=== PATIENT | male | born 1990 | race Caucasian/White ===

== ENCOUNTER 2021-09-28 08:57 | Emergency (ER) | payer SELFPAY ==
[~2021-09-28] VITALS: Ht 170.2 cm; Wt 50.0 kg
--- NOTE | 2021-09-28 09:23 | PHYS DOC ---
General Adult EDM: Chief Complaint: DENTAL PROBLEM HPI: HPI: Patient is a 30 year old male who presents after being seen at the dentist today for an abscess on the left upper side. Patient states that when the dentist went to numb the area he immediately had shooting pain and blurry vision in his left eye. Patient still currently reporting pain and some blurry vision in the left side. Denies all other symptoms. Patient states that vision has improved since he is arrived. Patient denies all medical history. Review of Systems: Review of Systems: ROS At least 10 ROS systems have been reviewed and are negative except as documented in the HPI. Heart Score: C/O Chest Pain: No Risk Factors: Risk Factors: DM, Current or recent (<one month) smoker, HTN, HLP, family history of CAD, obesity. Risk Scores: Score 0 - 3: 2.5% MACE over next 6 weeks - Discharge Home Score 4 - 6: 20.3% MACE over next 6 weeks - Admit for Clinical Observation Score 7 - 10: 72.7% MACE over next 6 weeks - Early Invasive Strategies Allergies: Allergies: Allergies Coded Allergies Type Severity Reaction Last Updated Verified No Known Drug Allergies 09/28/21 No Physical Exam: PE: Constitutional: Well developed, well nourished, no acute distress, non-toxic appearance. [] HENT: Normocephalic, atraumatic, bilateral external ears normal, oropharynx moist, no oral exudates, nose normal. [] Eyes: PERRLA, EOMI, conjunctiva normal, no discharge. [] Neck: Normal range of motion, no tenderness, supple, no stridor. [] Cardiovascular:Heart rate regular rhythm, no murmur [] Lungs & Thorax: Bilateral breath sounds clear to auscultation [] Abdomen: Bowel sounds normal, soft, no tenderness, no masses, no pulsatile masses. [] Skin: Warm, dry, no erythema, no rash. [] Back: No tenderness, no CVA tenderness. [] Extremities: No tenderness, no cyanosis, no clubbing, ROM intact, no edema. [] Neurologic: Alert and oriented X 3, normal motor function, normal sensory function, no focal deficits noted. [] Psychologic: Affect normal, judgement normal, mood normal. [] EKG: EKG: [] Radiology/Procedures: Radiology/Procedures: [] Course & Med Decision Making: Course & Med Decision Making Pertinent Labs and Imaging studies reviewed. (See chart for details) [] 30-year-old male presents with left-sided, upper dental pain and blurry vision on the left side after anesthesia block at the dentist. Patient reports that vision has improved since he has arrived. Denies all other neuro symptoms. Sensory intact and motor function. Work-up in ER consist of visual acuity and pain management. Patient reports that vision has improved since arrival. Patient still reporting pain. Patient given IM Toradol injection Upon reassessment Patient reports that pain has improved after injection. Advised patient to take ibuprofen at home for pain. Patient needs to continue taking antibiotics that were prescribed as directed and in full. Patient needs to make an appointment with oral surgeon to have tooth extracted. Discussed return precautions. Patient verbalizes discharge instructions patient is hemodynamically stable upon disposition Rebeca Disclaimer: Rebeca Disclaimer: This electronic medical record was generated, in whole or in part, using a voice recognition dictation system. CRISTA HARRIS APRN Sep 28, 2021 09:23
[2021-09-28] MEDS ORDERED: HYDROcodone/APAP 5/325MG 1 TAB TABLET PO ONE (09:30)
[2021-09-28] MEDS ORDERED: KETOROLAC 60 MG/2 ML VIAL. IM ONE (10:30)
[2021-09-28] MEDS ORDERED: KETOROLAC 60 MG/2 ML VIAL. ONE (10:43)
[2021-09-28 11:42] VITALS: BP 136/79
== END 2021-09-28 11:42 | disposition home or self-care (01) ==
LOC: ER 08:57
DX: K08.89 Other specified disorders of teeth and supporting structures (principal); H53.8 Other visual disturbances
CPT/HCPCS: 96372; 99283; J1885